=== PATIENT | female | born 1980 | race American Indian/Alaskan Native ===

== ENCOUNTER 2019-04-04 07:25 | Outpatient (CLI) | payer BC ==
--- NOTE | 2019-04-04 09:27 | Ultrasound Report ---
Pelvic Ultrasound HISTORY: Pelvic pain. 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 COMPARISON: None FINDINGS: Uterus measures 8.0 x 4.2 x 3.6 cm with endometrial echocomplex measuring 11 mm. There are at least 3 heterogeneous slightly hypoechoic masses in the uterus the largest arising from the body r ight of midline measuring 3.6 cm in maximal dimension. Both ovaries are normal size with preserved bl ood flow. There is a mildly complex cyst in the left ovary measuring 2.6 cm in maximal dimension with internal echoes. IMPRESSION: 1. Uterine fibroid disease with at least 3 fibroids, the largest of which is exophytic and arises rig ht of midline from the uterine body. 2. Mildly complex left ovarian cyst could be functional but consider follow-up pelvic ultrasound with in 6 weeks to ensure resolution. Signer Name: Lopez Montes MD Signed: 04/04/2019 9:23 AM Workstation Name: [id number]
--- NOTE | 2019-04-04 09:33 | Magnetic Resonance Report ---
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 COMPARISON: Pelvic ultrasound from today FINDINGS: The uterine canal is irregular and there is a cornua extending right of midline but none o n the left. This configuration would be consistent with the patient's history of uterine cornua uteru s. There is a small amount of endometrial fluid but no irregular endometrial wall thickening. There a re multiple uterine fibroids which are predominantly intramural; however, there is one which is exoph ytic/pedunculated and measures 4.3 cm in maximal dimension right of midline arising from the uterine body. This largest fibroid is fairly homogeneous in appearance with no gross evidence of degeneration on this examination although this is a noncontrast exam. There are small ovarian follicles bilateral ly and a simple 3 cm cyst in the left ovary. IMPRESSION: 1. Findings suggestive of uterine cornua uterus extending right of midline. 2. Multiple uterine fibroids, the largest of which is pedunculated and arises from the uterine body r ight of midline. No gross evidence of degeneration on this noncontrast MRI. 3. Previously noted complex left ovarian cyst on the ultrasound from today appears more simple on the current examination. Signer Name: Lopez Montes MD Signed: 04/04/2019 9:29 AM Workstation Name: [id number]
== END 2019-04-04 07:26 | disposition home or self-care (01) ==
LOC: MRI 07:25
PROVIDERS: ATTEND Obstetrics & Gynecology
DX: D25.1 Intramural leiomyoma of uterus (principal); Q51.4 Unicornate uterus; N94.5 Secondary dysmenorrhea
CPT/HCPCS: 72195; 76830